=== PATIENT | male | born 1990 | race African-American/Black ===

== ENCOUNTER 2022-11-20 08:24 | Emergency (ER) | payer SELFPAY ==
--- NOTE | 2022-11-20 08:33 | ED.CHESTPAIN ---
HPI - Chest Pain General Chief Complaint: Chest Pain Stated Complaint: chest pain rt side Time Seen by Provider: 11/20/22 08:33 Source: patient and RN notes reviewed History of Present Illness HPI narrative: Patient is a 32-year-old male presents to urgent care with complaints of right-sided chest pain comes patient states he has had this issue in the past and was told that was acid reflux. Patient complete cardiac workup a negative stress test within last year. Patient states the right-sided pain started today. States he has been seen a GI doctor who has placed him Pepcid for his reflux. States that he does not follow the rules on the reflux diet appropriately and did eat a bologna sandwich before bed last night. Patient states it is very hard to avoid the acidic foods and caffeine. Patient states he has also had high anxiety and stress since a break-up within the last year. Patient has seen a therapist regarding the issue and tries to decrease his anxiety without medications. Patient is currently denying any chest pain. Patient does appear to be anxious. No other acute complaints. No acute distress noted. Patient aware of the plan of care. Some parts of this dictation were generated by voice recognition software and may contain typographical and/or grammatical inaccuracies. Related Data Home Medications Medication Instructions Recorded Confirmed atenolol 100 mg tablet mg 11/20/22 clonazepam 1 mg tablet mg 11/20/22 famotidine 20 mg tablet mg 11/20/22 hydrochlorothiazide 25 mg tablet mg 11/20/22 lisinopril 20 mg tablet mg 11/20/22 omeprazole 20 mg capsule,delayed mg 11/20/22 release Allergies Allergy/AdvReac Type Severity Reaction Status Date / Time No Known Allergies Allergy Verified 11/20/22 08:47 Review of Systems Review of Systems: CONSTITUTIONAL: Denies fever, chills, or sweats. EYES: Denies visual changes, redness, or discharge. ENT: Denies rhinorrhea, congestion, sore throat, or otalgia. CARDIOVASCULAR: Reports of intermittent right-sided chest pain without radiation RESPIRATORY: Denies cough or dyspnea. GASTROINTESTINAL: Denies abdominal pain, nausea, vomiting, or diarrhea. GENITOURINARY: Denies dysuria or hematuria. SKIN: Denies rash or itching. MUSCULOSKELETAL: Denies back pain, joint pain, or myalgia. NEUROLOGIC: Denies headache, numbness, or weakness. PSYCHIATRIC: Reports of anxiety and depression All other systems reviewed are negative, except as documented in HPI. PMFSH Comments At the time of my signature, I reviewed and agree with the nursing past medical, surgical, social, and family history. There is no relevant family history pertinent to the patient complaint. Exam Narrative: GENERAL: This is a well-nourished, well-developed patient. Appears to be anxious HEAD: normocephalic, atraumatic. EYES: PERRL. Sclera clear/white. Vision is grossly intact. EARS: External ears normal NOSE: External nose normal with no obvious nasal discharge, nares without redness, no rhinorrhea. THROAT: Mucous membranes moist NECK: Neck supple CARDIOVASCULAR: Regular rate and rhythm RESPIRATORY: Clear to auscultation. Breath sounds equal bilaterally. No wheezes, rales, or rhonchi. SKIN: warm, intact with no suspicious lesions or rash, good texture and turgor. NEURO: awake, alert, and oriented to person, place and time. There were no obvious focal neurologic abnormalities. EXTREMITIES: No clubbing, cyanosis, or edema. Course Course Level of Care: Express Care Visit Vital Signs Vital signs: Vital Signs Temperature 97.2 F L 11/20/22 08:53 Pulse Rate 61 11/20/22 08:53 Respiratory Rate 16 11/20/22 08:53 Blood Pressure 144/84 H 11/20/22 08:53 Pulse Oximetry 100 11/20/22 08:53 Temperature 97.2 F L 11/20/22 08:53 Pulse Rate 61 11/20/22 08:53 Respiratory Rate 16 11/20/22 08:53 Blood Pressure 144/84 H 11/20/22 08:53 Pulse Oximetry 100 11/20/22 08:53 Reviewed- Patient i
[2022-11-20 08:53] VITALS: BP 144/84; PULSE 61; RESP 16; TEMP 36.2; O2SAT 100
--- NOTE | 2022-11-20 09:08 | ECG_ITS ---
Measurements Intervals [place] Rate: 52 P: 60 FL: 171 QRS: 28 QRSD: 102 T: 26 QT: 376 QTc: 352 Interpretive Statements SINUS BRADYCARDIA BORDERLINE ECG NO PREVIOUS ECG AVAILABLE FOR COMPARISON Electronically Signed On 11-20-2022 9:50:19 [employer] by Tobi Marquez D.O.
== END 2022-11-20 09:54 | disposition home or self-care (01) ==
PROVIDERS: Emergency Provider Nurse Practitioner Family
DX: F41.9 Anxiety disorder, unspecified (principal)
CPT/HCPCS: 93005; 99213; G0463